=== PATIENT | female | born 1940 | race Hispanic/Latino ===

== ENCOUNTER → 2018-06-01 | Day surgery (SDC) | payer MEDICARE ==
[2018-05-29 14:36] LABS: BASOPHILS # (AUTO) 0.1 (0.0-0.1); BASOPHILS % 0.7 % (0.0-1.0); EOSINOPHILS # (AUTO) 0.3 (0.0-0.4); EOSINOPHILS % 3.6 % (0.0-6.0); HEMATOCRIT 38.6 % (34.2-44.1); HEMOGLOBIN 13.3 g/dL (12.0-16.0); LYMPHOCYTES # (AUTO) 3.1 (1.0-3.2); LYMPHOCYTES % 40.3 % (18.0-39.1); MEAN CORPUSCULAR HEMOGLOBIN 31.9 pg (28-32); MEAN CORPUSCULAR HGB CONC 34.5 g/dL (31-35); MEAN CORPUSCULAR VOLUME 92.6 fL (81-99); MONOCYTES # (AUTO) 0.8 (0.2-0.8); MONOCYTES % 10.8 % (4.4-11.3); NEUTROPHILS # (AUTO) 3.4 (2.1-6.9); NEUTROPHILS % 44.5 % (38.7-80.0); PLATELET COUNT 187 x10e3/uL (140-360); RED BLOOD COUNT 4.17 x10e6/uL (3.6-5.1); RED CELL DISTRIBUTION WIDTH 11.8 % (11.7-14.4)
[2018-05-29 14:50] LABS: INR 0.99; PROTHROMBIN TIME 12.3 seconds (11.9-14.5)
[2018-05-29 14:51] LABS: PARTIAL THROMBOPLASTIN TIME 34.2 seconds (23.8-35.5)
[2018-05-29 14:57] LABS: ALANINE AMINOTRANSFERASE 8 IU/L (0-55); ALBUMIN 3.9 g/dL (3.5-5.0); ALBUMIN/GLOBULIN RATIO 0.9 (0.8-2.0); ALKALINE PHOSPHATASE 103 IU/L (40-150); ANION GAP 14.8 mmol/L (8-16); BLOOD UREA NITROGEN 17 mg/dL (7-26); BUN/CREATININE RATIO 23 (6-25); CALCIUM 9.7 mg/dL (8.4-10.2); CARBON DIOXIDE 27 mmol/L (22-29); CHLORIDE 98 mmol/L (98-107); CHOL/HDL RATIO 3.8 (3.0-3.6); CHOLESTEROL 226 MD/DL (0-199); CREATININE, SERUM 0.73 mg/dL (0.57-1.11); EST GLOMERULAR FILTRATION RATE > 60 ML/MIN (60-); GLUCOSE 98 mg/dL (74-118); HDL CHOLESTEROL 60 MG/DL (40-60); LDL CHOLESTEROL 136 MG/DL (60-130); POTASSIUM 4.8 mmol/L (3.5-5.1); SODIUM 135 mmol/L (136-145); TRIGLYCERIDES 148 MG/DL (0-149)
[2018-06-01] VITALS (18 sets, daily range): BP systolic 165–203; BP diastolic 68–99
[~2018-06-01] MED LIST: ASPIRIN81 MG PEG; ATORVASTATIN CA40 MG PO; BIVALIRUDIN 250 MG/VIAL IV ONE; FENTANYL CITRATE/PF 100MCG/2 ML INJ ONE; HEPARIN SOD (PORCINE) 1000 UNIT/ML 30ML ONE; HEPARIN SOD/SOD CHLORIDE 2,000 ML ONE; IOPAMIDOL 370 MG/ML 200 ML INFUS..BTL INJ ONE; LIDOCAINE HCL 2% LOCAL 20 ML VIAL ONE; LOSARTAN-HCTZ1 EAC2 PO; METOPROLOL SUCC25 MG PO; MIDAZOLAM HCL 2 MG/2 ML VIAL ONE; NITROGLYCERIN/D5W 200 MCG/ML 250 ML ONE; SODIUM CHLORIDE 0.9% 1000ML 1,000 ML ONE; SODIUM CHLORIDE 0.9% 50ML 0 ML ONE; VERAPAMIL HCL 2.5 MG/ML 2 ML VIAL ONE
--- NOTE | 2018-07-01 11:05 | Operative Report ---
DATE OF PROCEDURE: June 01, 2018 PROCEDURE INDICATION: Unstable angina. PROCEDURES PERFORMED 1. Left heart cardiac catheterization. 2. Selective coronary angiography times 2. 3. Right common femoral artery 6-Swiss Angio-Seal closure. PROCEDURE COMPLICATIONS: None. ESTIMATED BLOOD LOSS: Less than 15 mL. PROCEDURE SUMMARY: After consent was obtained, the patient was prepped and draped in a sterile fashion. The right femoral site was locally infiltrated with 2% lidocaine. Access was obtained using the micropuncture kit. A short 6-Swiss sheath was placed. All catheters were railed to the proximal ascending aorta using a J wire. JL4 and JR4 catheters were used for engagement of the left main and the right coronary artery for angiography in multiple views. A pigtail catheter was used for LV-gram. The following findings were observed: 1. LV pressure was 130/-1 with end-diastolic pressure of 11. 2. Aortic pressure was 139/65. 3. LV-gram reveals hyperdynamic left ventricular systolic function, normal regional wall motion, left ventricular ejection fraction more than 60%. 4. Left main: Large in caliber with luminal irregularities. Gives off an LAD, ramus intermedius and circumflex. 5. LAD has luminal irregularities in the proximal portion. The mid portion has 50% stenosis. The distal portion has 40% stenosis. A couple of diagonals and multiple septal perforators arise from the LAD. 6. Ramus intermedius is small in caliber, less than 2 mm in size, with 70% proximal stenosis. 7. The circumflex has an area of 30% to 40% stenosis in the proximal portion prior to giving an obtuse marginal which has 50% ostial stenosis and a 2nd obtuse marginal which has luminal irregularities. 8. The right coronary artery is dominant and has a separate upslope. Proximally it has 30% stenosis. The mid portion has 30% stenosis. In the mid RPDA, there is 40% stenosis. The RPLV has luminal irregularities. CONCLUSIONS 1. Severe stenosis of a small caliber ramus intermedius with otherwise mild to moderate multivessel coronary artery disease. 2. Hyperdynamic left ventricular systolic function. RECOMMENDATIONS 1. Continue aggressive medical therapy and assess response. 2. Four-hour bedrest status post right common femoral artery 6-Swiss Angio-Seal closure. Job#: [id number]
== END | disposition home or self-care (01) ==
LOC: CATH LAB 06:16
PROVIDERS: ATTEND Internal Medicine Cardiovascular Disease
DX: I25.110 Atherosclerotic heart disease of native coronary artery with unstable angina pectoris (principal); E78.5 Hyperlipidemia, unspecified; I10 Essential (primary) hypertension; Z01.810 Encounter for preprocedural cardiovascular examination; Z01.812 Encounter for preprocedural laboratory examination; Z79.82 Long term (current) use of aspirin
CPT/HCPCS: 36415; 80053; 80061; 83036; 85025; 85610; 85730; 93005; 93458; C1769; C1887; J1644; J2001; J2250; J7030; Q9967; J0583

== ENCOUNTER → 2019-06-07 | Day surgery (SDC) | payer MEDICARE ==
[2019-06-03 11:52] LABS: BASOPHILS % 0.5 % (0.0-1.0); EOSINOPHILS # (AUTO) 0.2 (0.0-0.4); EOSINOPHILS % 2.9 % (0.0-6.0); HEMATOCRIT 37.3 % (34.2-44.1); HEMOGLOBIN 12.6 g/dL (12.0-16.0); LYMPHOCYTES # (AUTO) 2.9 (1.0-3.2); LYMPHOCYTES % 37.6 % (18.0-39.1); MEAN CORPUSCULAR HGB CONC 33.8 g/dL (31-35); MEAN CORPUSCULAR VOLUME 94.7 fL (81-99); MONOCYTES # (AUTO) 0.7 (0.2-0.8); MONOCYTES % 9.4 % (4.4-11.3); NEUTROPHILS # (AUTO) 3.8 (2.1-6.9); NEUTROPHILS % 49.3 % (38.7-80.0); PLATELET COUNT 193 x10e3/uL (140-360); RED BLOOD COUNT 3.94 x10e6/uL (3.6-5.1); RED CELL DISTRIBUTION WIDTH 12.4 % (11.7-14.4)
[2019-06-03 11:59] LABS: INR 0.85; PARTIAL THROMBOPLASTIN TIME 31.4 seconds (23.8-35.5); PROTHROMBIN TIME 12.1 seconds (11.9-14.5)
[2019-06-03 12:09] LABS: ALBUMIN/GLOBULIN RATIO 1.1 (0.8-2.0); ALKALINE PHOSPHATASE 97 IU/L (40-150); ANION GAP 12.8 mmol/L (8-16); BLOOD UREA NITROGEN 16 mg/dL (7-26); BUN/CREATININE RATIO 21 (6-25); CALCIUM 9.2 mg/dL (8.4-10.2); CARBON DIOXIDE 30 mmol/L (22-29); CHLORIDE 96 mmol/L (98-107); CREATININE, SERUM 0.77 mg/dL (0.57-1.11); EST GLOMERULAR FILTRATION RATE > 60 ML/MIN (60-); GLUCOSE 92 mg/dL (74-118); POTASSIUM 4.8 mmol/L (3.5-5.1); SODIUM 134 mmol/L (136-145)
[2019-06-03 12:15] LABS: ALANINE AMINOTRANSFERASE < 6 IU/L (0-55)
[2019-06-03 12:48] LABS: CHOL/HDL RATIO 3.2 (3.0-3.6)
[~2019-06-07] VITALS: Ht 142.2 cm; Wt 56.7 kg
[2019-06-07] VITALS (12 sets, daily range): BP systolic 139–176; BP diastolic 63–102
[~2019-06-07] MED LIST changes: +ASPIRIN 325 MG TAB ONE; -BIVALIRUDIN 250 MG/VIAL IV ONE; +CLOPIDOGREL BISULFATE 75 MG TAB ONE; -HEPARIN SOD (PORCINE) 1000 UNIT/ML 30ML ONE; +HYDRALAZINE HCL 20 MG/ML VIAL ONE; +HYDROCHLOROTHIA25 MG PO; +IOPAMIDOL 300MG/ML 100 ML INFUS..BTL IV ONE; -IOPAMIDOL 370 MG/ML 200 ML INFUS..BTL INJ ONE; +LOSARTAN POTAS100 MG PO; -NITROGLYCERIN/D5W 200 MCG/ML 250 ML ONE; +PANTOPRAZOLE SO40 MG PO; -SODIUM CHLORIDE 0.9% 50ML 0 ML ONE
--- NOTE | 2019-06-07 20:29 | Operative Report ---
DATE OF PROCEDURE: 06/07/2019 SURGEON: Oscar Santillan MD PERIPHERAL ANGIOGRAPHY AND INTERVENTION PROCEDURE INDICATION: Peripheral arterial disease with life-limiting claudication, right more than left lower extremity. PROCEDURES PERFORMED: 1. Abdominal aortogram. 2. Selective lower extremity angiography, bilateral. 3. Ultrasound-guided access to the left common femoral artery. 4. Third-order catheter placement from left common femoral artery to right popliteal artery. 5. Additional third-order catheter placement, left common femoral artery to right common femoral artery. 6. Additional third-order catheter placement, left common femoral artery to right anterior tibial artery. 7. Right anterior tibial CSI atherectomy with a 1.25 micro Starke at 60,000 and 90,000 rpm. 8. Right anterior tibial percutaneous transluminal angioplasty, successful. 9. Right posterior tibial percutaneous transluminal angioplasty, attempted and aborted. 10. Left common femoral artery 6-Nepali Angio-Seal closure. PROCEDURE COMPLICATIONS: None. ESTIMATED BLOOD LOSS: Less than 15 mL. PROCEDURE SUMMARY: After consent was obtained, the patient was prepped and draped in a sterile fashion. The left femoral site was locally infiltrated with 2% lidocaine and access was obtained with ultrasound guidance and micropuncture. A 6-Nepali sheath was placed. An Omni Flush catheter was positioned in the distal descending abdominal aorta. Angiography was performed revealing patent renal arteries and luminal irregularities in the infrarenal aorta and iliac vessels. Additional selective angiography was performed to each of both lower extremities with catheter positioned in the right femoral artery, right popliteal artery, right anterior tibial artery and left external iliac artery. We decided to proceed with intervention to the right anterior tibial artery performed with Roadrunner wire to cross the anterior tibial and the catheter exchanged for a Viper wire after which CSI atherectomy was performed with 60,000 and 90,000 rpm. This was followed by 3.0 x 220 ultraverse balloon inflation to 9 atmospheres and excellent final angiographic results. [id number] flow, no flow-limiting dissections, no perforations and less than 10% residual stenosis from initial stenosis of 100%. Attention was then directed to the right posterior tibial artery with catheter positioned in the proximal segment of the right PT artery. This was followed by wire interrogation and proximal posterior tibial wire advancement to the mid segment. However, distal segment chronic total occlusion do not feel intraluminal and keep going into some degree of wire buckling, after which it was decided to abort further attempts at PT CRYPTOLOGIC SUPERVISOR. Sheath was then retrieved to the left external iliac artery where the angiography was selectively performed to left lower extremity. Aspirin, Plavix, and heparin to maintain ACT over 250 were administered for this procedure. FINDINGS: The infrarenal abdominal aorta and iliac vessels and renal arteries have luminal irregularities, although the common femoral, profunda femoris bilaterally. The SFA has less than 30% areas of stenosis in tandem throughout bilaterally. Popliteal arteries also have less than 30% stenosis. The right anterior tibial artery is 100% occluded in the distal segment with reconstitution of the dorsalis pedis via collaterals. The right TP trunk and right peroneal are patent. The right posterior tibial artery is 100% occluded. This is a long segment occlusion from proximal to distal with distal reconstitution of the ankle and posterior tibial via collaterals from the peroneal. The left anterior tibial is occluded mid to distal. The left TP trunk is patent. Left peroneal artery seems to be occluded 100% in the distal segment and the left posterior tibial artery seems to be patent as a single vessel runoff to lower extremity. This vessels are overall poorly visualized to left lower extremity [id number], given faint dye contrast at this level. CONCLUSION: Successful right anterior tibial CSI atherectomy and CRYPTOLOGIC SUPERVISOR and aborted right posterior tibial artery CRYPTOLOGIC SUPERVISOR. RECOMMENDATIONS: 1. Aspirin and Plavix. 2. Consider staged intervention to the left [id number] vessels at a later date. Oscar Santillan MD AFStacia/SHELL /[id number] MTDD
== END | disposition home or self-care (01) ==
LOC: CATH LAB 08:05
PROVIDERS: ATTEND Internal Medicine Cardiovascular Disease
DX: I70.213 Atherosclerosis of native arteries of extremities with intermittent claudication, bilateral legs (principal); I70.92 Chronic total occlusion of artery of the extremities; I25.10 Atherosclerotic heart disease of native coronary artery without angina pectoris; I10 Essential (primary) hypertension; Z01.810 Encounter for preprocedural cardiovascular examination; Z01.812 Encounter for preprocedural laboratory examination
CPT/HCPCS: 36415; 37229; 75630; 76937; 80053; 80061; 85025; 85610; 85730; 93005; C1724; C1760; C1769; C1887; J0360; J2001; J2250; J3010; J7030; Q9967; 36247